=== PATIENT | female | born 1970 | race Caucasian/White ===

== ENCOUNTER → 2020-10-23 16:23 | Outpatient (CLI) | payer OTHER, SELFPAY ==
--- NOTE | ~2020-10-23 | XR_ITS ---
XR sacroiliac joints min 3V DATE: 10/23/2020 17:02 INDICATION: Sacrococcygeal disorder TECHNIQUE: Multiple views COMPARISON: None FINDINGS: An IUD overlies the mid and lower pelvis. The sacroiliac joints are intact, without evidence of erosive change or ankylosis. The pubic symphysi s is intact. IMPRESSION: No significant abnormality of the sacroiliac joints Reviewed, dictated and finalized at [facility]. Reviewed, dictated and finalized at location A.
== END ==
PROVIDERS: PCP Family Medicine; Visit Provider Physician Assistant
DX: M53.3 Sacrococcygeal disorders, not elsewhere classified (principal)
CPT/HCPCS: 72202

== ENCOUNTER 2020-11-08 00:15 | Emergency (ER) | payer OTHER, SELFPAY ==
--- NOTE | ~2020-11-08 | CT_ITS ---
EXAMINATION: CT abdomen pelvis wo con DATE: 11/08/2020 01:45 INDICATION: Left flank pain TECHNIQUE: Computed tomography (CT) of the abdomen and pelvis was performed without intravenous contr ast. The dose-length product (DLP) was 357.72 mGy-cm. Automated exposure control and iterative recons truction technique were employed. COMPARISON: None FINDINGS: The lung bases are clear. The heart size is normal. There is a 2.3 cm area of hypoattenuati on in the right hepatic lobe on image 35. The spleen, pancreas, gallbladder, and adrenal glands are n ormal. The kidneys are unremarkable. There is a 2 mm stone in the distal left ureter which causes mil d hydroureteronephrosis. The right kidney is unremarkable. No pathologically enlarged abdominal or pe lvic lymph nodes are identified. There is no free intraperitoneal gas or evidence of bowel obstructio n. The appendix is normal. An IUD is in expected position. IMPRESSION: 1. 2 mm stone of the distal left ureter causing mild hydroureteronephrosis. 2. Indeterminate 2.3 cm liver lesion. Although likely benign in the absence of known malignancy, pilar mmend comparison with any available prior imaging and if unavailable, further evaluation by MRI or CT without and with contrast. Reviewed, dictated and finalized at location B. IMPRESSION: 1. 2 mm stone of the distal left ureter causing mild hydroureteronephrosis. 2. Indeterminate 2.3 cm liver lesion. Although likely benign in the absence of known malignancy, recommend comparison with any available prior imaging and if unavailable, further evaluation by MRI or CT without and with contrast.
[2020-11-08 00:21] VITALS: BP 154/94; PULSE 55; RESP 14; TEMP 36.6; O2SAT 100
--- NOTE | 2020-11-08 01:01 | ED.ABDPAIN ---
HPI - Abdominal Pain General Chief Complaint: Abdominal Pain Stated Complaint: L abd pain Time Seen by Provider: 11/08/20 00:38 Source: patient Mode of arrival: ambulatory Limitations: no limitations History of Present Illness HPI narrative: Patient is a 50-year-old female complaining of left flank pain radiating to her left lower abdominal area accompanied by nausea and difficulty urinating that started approximately 3 hours prior to arrival. Patient states that her pain was an 8 out of 10 and currently now resolved. Patient states her nausea is also resolved. Patient denies any chest pain, shortness of breath, vomiting, diarrhea, fever or chills. Denies history of kidney stones. Related Data Allergies Allergy/AdvReac Type Severity Reaction Status Date / Time No Known Allergies Allergy Unverified 07/06/20 16:26 Review of Systems Review of Systems: All systems reviewed & are unremarkable except as noted in HPI and below Constitutional: Constitutional: Denies body ache(s), Denies chills, Denies excessive sweating, Denies fatigue, Denies fever(s), Denies headache(s), Denies lethargy, Denies malaise, Denies weakness and Denies weight loss Eyes: Eyes: Denies blurry vision, Denies change in vision and Denies loss of vision ENT: Denies dizziness, Denies ear discharge, Denies headache(s), Denies lip swelling, Denies epistaxis, Denies nasal congestion, Denies neck pain, Denies throat swelling and Denies tongue swelling Cardiovascular: Cardiovascular: Denies chest pain, Denies chest pain at rest, Denies chest pain with activity, Denies diaphoresis, Denies rapid heart rate, Denies edema, Denies irregular heart rhythm, Denies lightheadedness, Denies palpitations, Denies dyspnea and Denies dyspnea on exertion Respiratory: Respiratory: Denies chest congestion, Denies cough, Denies hemoptysis, Denies dyspnea and Denies dyspnea on exertion Gastrointestinal: Gastrointestinal: Denies abdominal pain, Denies melena, Denies hematochezia, Denies diarrhea, Denies nausea, Denies vomiting and Denies hematemesis Musculoskeletal: Musculoskeletal: Denies abnormal gait, Denies deformity, Denies joint swelling, Denies limited range of motion, Denies neck pain and Denies numbness Neurologic: Denies Abnormal speech present, Denies abnormal gait, Denies confusion, Denies dizziness, Denies headache(s), Denies focal weakness, Denies loss of vision, Denies numbness, Denies Other visual disturbances, Denies Sensory deficit (Neuro) and Denies weakness Psychiatric: Psychiatric: Denies confusion, Denies depression, Denies auditory hallucinations, Denies homicidal ideation and Denies suicidal ideation Endocrine: Endocrine: Denies cold intolerance, Denies excessive sweating, Denies fatigue, Denies heat intolerance and Denies palpitations Hematologic/Lymphatic: Hematologic/Lymphatic: Denies easy bleeding and Denies easy bruising Allergic/Immunologic: Allergic/Immunologic: Denies lip swelling, Denies throat swelling and Denies tongue swelling PMFSH Past Medical History Medical History Exposure to influenza History of DVT of lower extremity Pyrexia Family History Family History Mother Patient's mother is , Onset Age: 61 Father Patient's father is in good health Social History Social History Social History: Second hand tobacco smoke exposure: No Alcohol intake: current Substance use: never Substance use type: does not use Gender identity (if verbalized by the patient): Female Exam Const: General: cooperative, healthy appearing, comfortable, no acute distress, well developed, alert and awake; No confusion Orientation/consciousness: oriented to person, oriented to place, oriented to time, patient oriented x3 and No confusion Limitations: no limitations
[2020-11-08 01:35] LABS: Basophils Absolute Auto 0.1 K/mm3 (0.0-0.1); Basophils Percent Auto 0.5 % (0.2-1.2); Eosinophils Absolute Auto 0.1 K/mm3 (0-0.3); Eosinophils Percent Auto 0.8 % (0-4.4); Hematocrit 41.4 % (37.0-47.0); Hemoglobin 13.5 g/dL (12.0-15.0); Immature Granulocyte Absolute 0.04 K/mm3 (0.00-0.031); Immature Granulocyte Percent A 0.3 % (0-0.5); Lymphocytes Absolute Auto 1.61 K/mm3 (0.9-3.2); Lymphocytes Percent Auto 12.1 % (18.3-44.2); Mean Corpuscular HGB Conc 32.6 g/dl (32-36); Mean Corpuscular Hemoglobin 29.2 pg (26-34); Mean Corpuscular Volume 89.6 fl (80-100); Mean Platelet Volume 8.7 fl (7.4-10.4); Monocytes Percent Auto 7.3 % (2.6-8.5); Neutrophils Absolute Auto 10.6 K/mm3 (1.3-6.7); Platelet Count Result 311 k/mm3 (150-375); Red Blood Count 4.62 M/mm3 (4.2-5.4); Red Cell Distribution Width 13.1 % (11.5-14.5); White Blood Count 13.4 K/mm3 (4.5-10.0)
[2020-11-08 01:44] LABS: Add Urine Microscopic? YES; Appearance Urine Cloudy (Clear); Bilirubin Urine Negative (Negative); Blood Urine 1+ (Negative); Color Urine Yellow (Yellow); Glucose Urine UA Negative (Negative); Ketones Urine Negative (Negative); Leukocyte Esterase Ur Trace LEU/UL (Negative); Mucus Urine Few /lpf; Nitrate Urine Negative (Negative); Protein Urine Negative (Negative); Squamous Epithelial Cell Urine Few /hpf (Few); Uric Acid Crystals Urine Present /hpf; Urobilinogen Urine Negative mg/dL (<2.0)
[2020-11-08 01:48] LABS: Anion Gap 10 mmol/L (8-16); Blood Urea Nitrogen 17 mg/dL (7-17); Calcium 9.7 mg/dL (8.4-10.2); Carbon Dioxide 25 mmol/L (22-30); Chloride 106 mmol/L (98-107); Estimated CRCL calculation 51 ml/min; Estimated Glomerular Filt Rate 53; Glucose 96 mg/dL (65-105); Potassium 3.7 mmol/L (3.4-5.0); Sodium 141 mmol/L (137-145)
[2020-11-08 03:07] VITALS: BP 144/84; PULSE 60; RESP 18; O2SAT 99
--- NOTE | 2020-11-08 08:43 | PC.NURSE ---
ATTEMPTED TO CONTACT PT @[phone],WENT TO VOICE MAIL LEFT MESSAGE TO RETURN CALL.
--- NOTE | 2020-11-08 10:44 | PC.NURSE ---
1032 PT RETURNED CALL, THIS COUNTY PROGRAM TECHNICIAN INFORMED HER OF THE OVER-READ BY OUR RADIOLOGIST. WHEN ASKED IF SHE WAS HAVING PAIN PT STATED SHE WAS NOT IN PAIN. INFORMED PT TO STAY WELL HYDRATED AND CONTACT US IF SHE EXPERIENCED ANY FURTHER PROBLEMS. PT THANKED US AND STATED SHE WOULD DO SO.
== END 2020-11-08 03:10 | disposition home or self-care (01) ==
PROVIDERS: Emergency Provider Emergency Medicine; PCP Family Medicine
DX: N39.0 Urinary tract infection, site not specified (principal); Z86.718 Personal history of other venous thrombosis and embolism
CPT/HCPCS: 36415; 74176; 80048; 81001; 81025; 85025; 99284

== ENCOUNTER → 2021-01-19 08:44 | Outpatient (CLI) | payer OTHER, SELFPAY ==
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
== END ==
PROVIDERS: PCP Family Medicine; Visit Provider Family Medicine
DX: S69.90XA Unspecified injury of unspecified wrist, hand and finger(s), initial encounter (principal); X58.XXXA Exposure to other specified factors, initial encounter
CPT/HCPCS: 73120

== ENCOUNTER → 2021-10-19 16:58 | Outpatient (CLI) | payer OTHER, SELFPAY ==
--- NOTE | ~2021-10-19 | XR_ITS ---
XR lumbar spine 2-3V DATE: 10/19/2021 17:48 INDICATION: Hip pain TECHNIQUE: AP, lateral, coned lateral lumbosacral views COMPARISON: None FINDINGS: There is mild degenerative spurring of the lower thoracic and lumbar spine. There is thoracic dextro scoliosis with minimal compensatory levoscoliosis of the lumbar spine. No fracture or bone destruction of the lumbar spine. The lumbar and included lower thoracic pedicles are intact. There is degenerative change at the apophyseal joints at L5-S1 with associated minimal grade 1 jason listhesis at L5-S1. The sacroiliac joints are intact. IUD overlying central pelvic area. IMPRESSION: Minimal compensatory levoscoliosis of the lumbar spine Thoracic dextroscoliosis Mild degenerative spurring of the thoracic and lumbar spine Minimal grade 1 anterolisthesis at L5-S1 due to degenerative change at the apophyseal joints Reviewed, dictated and finalized at location A. IMPRESSION: Minimal compensatory levoscoliosis of the lumbar spine Thoracic dextroscoliosis Mild degenerative spurring of the thoracic and lumbar spine Minimal grade 1 anterolisthesis at L5-S1 due to degenerative change at the apop hyseal joints
--- NOTE | ~2021-10-19 | XR_ITS ---
XR hip RT 2V w AP pelvis DATE: 10/19/2021 17:48 INDICATION: Right hip pain TECHNIQUE: AP pelvis. AP and lateral views of right hip COMPARISON: None FINDINGS: No pelvic fracture or bone destruction. The pubic symphysis and sacroiliac joints are intac t. An IUD overlies the central pelvic area. Hip joint spaces appear symmetric and relatively preserved. No fracture or dislocation, avascular necrosis or bone destruction of the right hip. IMPRESSION: No significant abnormality of the right hip IUD Reviewed, dictated and finalized at location A.
--- NOTE | ~2021-10-19 | XR_ITS ---
XR knee RT 2V DATE: 10/19/2021 17:48 INDICATION: Right knee pain TECHNIQUE: Standing AP and lateral views COMPARISON: None FINDINGS: There is minimal periarticular spurring at the patellofemoral and medial compartments and s light loss of height of medial compartment joint space, consistent with mild osteoarthritis. No fracture or dislocation or joint effusion. No periosteal reaction or bone destruction. No radiopaq ue intra-articular loose body or, calcinosis. IMPRESSION: Mild patellofemoral and medial compartment osteoarthritis Reviewed, dictated and finalized at location A.
== END ==
PROVIDERS: PCP Family Medicine; Visit Provider Family Medicine
DX: M25.559 Pain in unspecified hip (principal); M25.561 Pain in right knee; M41.84 Other forms of scoliosis, thoracic region; M77.8 Other enthesopathies, not elsewhere classified; M47.816 Spondylosis without myelopathy or radiculopathy, lumbar region; M17.11 Unilateral primary osteoarthritis, right knee; Z97.5 Presence of (intrauterine) contraceptive device
CPT/HCPCS: 72100; 73502; 73560

== ENCOUNTER → 2021-12-24 16:30 | Outpatient (CLI) | payer OTHER, SELFPAY ==
--- NOTE | ~2021-12-24 | MM_ITS ---
EXAMINATION: MM screening lynda BI w berta HISTORY: Screening mammogram TECHNIQUE: Craniocaudal and mediolateral oblique 3-D tomosynthesis images were obtained and synthetic 2-D images were generated. CAD analysis was submitted and interpreted. COMPARISON: 12/03/2016 diagnostic right mammogram and limited right breast ultrasound 05/02/2016 bilateral diagnostic mammography and bilateral Limited breast ultrasound examination 03/07/2016 bilateral screening mammogram BREAST PARENCHYMAL COMPOSITION: There are scattered areas of fibroglandular density. FINDINGS: Stable mild fibroglandular asymmetry since 03/07/2016. There is no evidence of suspicious m ass, calcification, or architectural distortion to suggest malignancy in either breast. There has bee n no suspicious interval change. IMPRESSION: 1. No mammographic evidence of malignancy. 2. Recommend routine screening mammography in one year. BI-RADS Category 2: Benign finding(s). Reviewed, dictated and finalized at location A.
== END ==
PROVIDERS: PCP Family Medicine; Visit Provider Family Medicine
DX: Z12.31 Encounter for screening mammogram for malignant neoplasm of breast (principal)
CPT/HCPCS: 77063; 77067

== ENCOUNTER 2022-01-29 18:14 | Emergency (ER) | payer OTHER, SELFPAY ==
[2022-01-29 18:25] VITALS: BP 121/74; PULSE 77; RESP 18; TEMP 37.2; O2SAT 99
--- NOTE | 2022-01-29 18:30 | ED.URI ---
HPI - URI/Sore Throat General Chief Complaint: Upper Respiratory Infection Stated Complaint: Sore Throat Time Seen by Provider: 01/29/22 18:30 History of Present Illness HPI Narrative: Arnol Jaffe is a 51 yo female with no PMH who comes to express care with sore throat, fever 100.6 last night. States that she needs a strep and covid test for work although she think that she has strep Related Data Allergies Allergy/AdvReac Type Severity Reaction Status Date / Time No Known Allergies Allergy Verified 01/29/22 18:34 Review of Systems Review of Systems: CONSTITUTIONAL: Had fever, chills, sweats. EYES: Denies visual changes, redness, discharge. ENT: Denies rhinorrhea, congestion, has sore throat, otalgia. CARDIOVASCULAR: Denies chest pain, palpitations, edema. RESPIRATORY: Denies dyspnea, wheezing, cough GASTROINTESTINAL: Denies abdominal pain, nausea, vomiting, diarrhea. GENITOURINARY: Denies dysuria, hematuria, abnormal discharge SKIN: Denies rash or itching. NEUROLOGIC: Denies numbness, or focal weakness. PSYCHIATRIC: Denies anxiety or depression. PMFSH Past Medical History Medical History Exposure to influenza History of DVT of lower extremity Pyrexia Family History Family History Mother Patient's mother is , Onset Age: 61 Father Patient's father is in good health Social History Social History Social History: Smoking status: Never smoker Second hand tobacco smoke exposure: No Alcohol intake: current Alcohol use details: occassionally Substance use: never Substance use type: does not use Gender identity (if verbalized by the patient): Female Sexual Orientation (if Verbalized by the Patient): Straight or Heterosexual Comments At time of signature, I agree with nursing past medical, surgical, social and family history. There is no relevant family history pertinent to the presenting complaint. Exam Narrative: GENERAL: This is a well-nourished, well-developed patient, in mild distress. HEAD: normocephalic, atraumatic. EYES: Sclera clear/white. Vision is grossly intact. EARS: External ears normal, auditory canals erythema and without drainage, TMs normal without perforation. Hearing grossly intact. NOSE: External nose normal without nasal discharge, nares without redness, no rhinorrhea. THROAT: Mucous membranes moist, posterior pharynx erythema NECK: Neck supple, non-tender CARDIOVASCULAR: Regular rate and rhythm without murmurs, gallops, or rubs. RESPIRATORY: Clear to auscultation. Breath sounds equal bilaterally. No wheezes, rales, or rhonchi. GASTROINTESTINAL: Abdomen soft, non-tender, SKIN: warm, intact with no suspicious lesions or rash, good texture and turgor. NEURO: awake, alert, and oriented to person, place and time. There were no obvious focal neurologic abnormalities. Steady gait EXTREMITIES: Normal range of motion. BACK: Nontender without deformity Course Course Emergency Course: Patient here with a temperature of 100.6 and sore throat since yesterday; to go back to work she needs to be tested for COVID as well as strep COVID- Negative Strep test-negative yet Started on prednisone and Plavix and eardrops prescribed some meclizine and Tomasa maneuver Level of Care: Express Care Visit Vital Signs Vital signs: Vital Signs Temperature 98.9 F 01/29/22 18:25 Pulse Rate 77 01/29/22 18:25 Respiratory Rate 18 01/29/22 18:25 Blood Pressure 121/74 01/29/22 18:25 Pulse Oximetry 99 01/29/22 18:25 Oxygen Delivery Room Air 01/29/22 18:25 Temperature 98.9 F 01/29/22 18:25 Pulse Rate 77 01/29/22 18:25 Respiratory Rate 18 01/29/22 18:25 Blood Pressure 121/74 01/29/22 18:25 Pulse Oximetry 99 01/29/22 18:25 Oxygen Delivery Room Air 01/29/22 18:25
== END 2022-01-29 19:20 | disposition home or self-care (01) ==
PROVIDERS: Emergency Provider Nurse Practitioner; PCP Family Medicine
DX: J02.9 Acute pharyngitis, unspecified (principal); Z20.822 Contact with and (suspected) exposure to COVID-19
CPT/HCPCS: 87081; 87426; 87880; 99213; C9803; G0463

== ENCOUNTER 2022-06-26 16:23 | Outpatient (CLI) | payer OTHER, SELFPAY ==
--- NOTE | ~2022-06-26 | US_ITS ---
EXAMINATION: US venous doppler [facility] DATE: 06/26/2022 17:07 INDICATION: M79.606 - Pain in leg, unspecified . TECHNIQUE: Grayscale images without and with compression and Doppler images of the left lower extremi ty veins were obtained. COMPARISON: None FINDINGS: The left common femoral vein, profunda femoral vein, femoral vein, popliteal vein, peroneal vein, pos terior tibial veins, and greater saphenous vein are patent. Interrogation of the area of pain in left anterior thigh revealed no sonographic abnormality. IMPRESSION: 1. Patent left lower extremity veins. No evidence of deep venous thrombosis. Reviewed, dictated and finalized at location K. PRINT CLERK
== END 2022-06-26 16:24 | disposition home or self-care (01) ==
PROVIDERS: PCP Family Medicine; Visit Provider Nurse Practitioner Gerontology
DX: M79.606 Pain in leg, unspecified (principal); Z86.718 Personal history of other venous thrombosis and embolism
CPT/HCPCS: 93971

== ENCOUNTER 2022-09-08 10:44 | Emergency (ER) | payer OTHER, SELFPAY ==
[2022-09-08 10:57] VITALS: BP 118/76; PULSE 56; RESP 18; TEMP 36.5; O2SAT 99
--- NOTE | 2022-09-08 11:27 | ED.URI ---
HPI - URI/Sore Throat General Chief Complaint: Upper Respiratory Infection Stated Complaint: . Time Seen by Provider: 09/08/22 10:48 Source: patient Mode of arrival: ambulatory History of Present Illness HPI Narrative: 52-year-old female presents to [facility] with complaints of sore throat, body aches and intermittent stiff neck for the past 4-5 days. Patient reports history of strep and tonsillitis in the past. Patient has been taking [id number] ibuprofen with minimal relief. Patient has runny nose, nasal congestion, nausea, vomiting or diarrhea. Patient reports history of postnasal drainage and seasonal allergies but reports that she does not take a daily allergy medication MD elicited complaint: sore throat Onset (ago): day(s) (4-5) Consistency: constant Severity: mild Able to tolerate fluids by mouth: Yes Exacerbating factors: swallowing Relieving factors: nothing Treatments prior to arrival: ibuprofen Related Data Allergies Allergy/AdvReac Type Severity Reaction Status Date / Time No Known Allergies Allergy Verified 09/08/22 11:31 Review of Systems Constitutional: Constitutional: Denies chills, Denies fatigue, Denies fever(s) and Denies weakness ENT: Denies dizziness, Denies epistaxis, Denies nasal congestion and Reports sore throat Cardiovascular: Cardiovascular: Denies chest pain Respiratory: Respiratory: Denies cough, Denies dyspnea and Denies wheezing Gastrointestinal: Gastrointestinal: Denies diarrhea, Denies nausea and Denies vomiting Musculoskeletal: Comments: Intermittent neck pains Integumentary/Breasts: Skin/Breast: Denies erythema and Denies rash Neurologic: Denies dizziness, Denies syncope and Denies headache(s) [facility] Past Medical History Medical History Exposure to influenza History of DVT of lower extremity Pyrexia Family History Family History Mother Patient's mother is , Onset Age: 61 Father Patient's father is in good health Social History Social History Social History: Smoking status: Never smoker Second hand tobacco smoke exposure: No Alcohol intake: current Alcohol use details: occassionally Substance use: never Substance use type: does not use Living arrangements: with family Occupation/Education: occupation Gender identity (if verbalized by the patient): Female Sexual Orientation (if Verbalized by the Patient): Straight or Heterosexual Comments At time of signature, I agree with nursing past medical, surgical, social and family history. There is no relevant family history pertinent to the presenting complaint. Exam Const: General: healthy appearing and no acute distress Nutritional Appearance: well nourished Orientation/consciousness: patient oriented x3 Limitations: no limitations HENMT: Head: normal to inspection Ears: external ears normal, TM's normal bilaterally and EAC's normal Face/Nose/Sinus: Normal external nose present Mouth: Yes lip normal and Yes moist mucous membranes Teeth and gingiva: dentition normal Other: 2+ swelling and moderate erythema noted to right tonsil, no peritonsillar abscess or exudate noted. Eyes: Conjunctivae: conjunctivae normal Neck: Neck: normal visual inspection, no lymphadenopathy and no meningeal signs Other: Full range of motion noted to neck. No nuchal rigidity noted Resp: Effort & Inspection: normal respiratory effort Auscultation: clear to auscultation bilaterally, no crackles, no rales and no rhonchi Cardio: Rate: regular rate Rhythm: regular rhythm Heart sounds: no murmurs Skin: General skin exam: normal color Rashes: no rashes Neuro: General: patient oriented x3 Speech: normal speech Psych: Affect: normal affect Attitude: cooperative Course Course Level of Care: Expr
== END 2022-09-08 11:39 | disposition home or self-care (01) ==
PROVIDERS: Emergency Provider Nurse Practitioner Family; PCP Family Medicine
DX: J02.0 Streptococcal pharyngitis (principal); Z86.718 Personal history of other venous thrombosis and embolism
CPT/HCPCS: 87081; 87880; 99213; G0463

== ENCOUNTER 2023-12-05 08:46 | Outpatient (CLI) | payer OTHER, SELFPAY ==
--- NOTE | ~2023-12-05 | XR_ITS ---
XR hip RT 2V w AP pelvis Ordering provider: Kinga Valles PA-C History: . no injury lbp with rt hip pain for 5 days . Comparison: October 19, 2021 FINDINGS: BONES: No acute fracture or dislocation. HIP JOINT SPACES: Normal. SACROILIAC JOINT SPACES/LUMBAR SPINE: The sacroiliac joint spaces are normal. Mild degenerative parnell es of the visualized lower lumbar spine. PUBIC SYMPHYSIS: Normal. SOFT TISSUES: Normal. IUD is noted. IMPRESSION: No acute osseous abnormality pelvis and right hip. Reviewed, dictated and finalized at location A.
--- NOTE | ~2023-12-05 | XR_ITS ---
3 VIEWS LUMBAR SPINE Ordering provider: Kinga Valles PA-C History: . no injury lbp with rt hip pain for 5 days . Comparison: October 19, 2021 FINDINGS: VERTEBRAL BODIES: No visible fracture or subluxation. Degenerative changes of the spine. DISK SPACES: Normal. Facet joint disease at the level of L4-L5 and L5-S1. SOFT TISSUES: Normal. IMPRESSION: No acute osseous abnormality lumbar spine. Reviewed, dictated and finalized at location A.
== END 2023-12-05 08:47 ==
LOC: MICIMG 08:48
PROVIDERS: PCP Family Medicine; Visit Provider Student in an Organized Health Care Education/Training Program
DX: M25.551 Pain in right hip (principal); M54.50 Low back pain, unspecified
CPT/HCPCS: 72100; 73502

== ENCOUNTER 2024-12-22 19:01 | Emergency (ER) | payer OTHER, SELFPAY ==
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
--- OUTSIDE RECORDS SUMMARY | 2024-12-22 19:03 | XMS_ITS | Clinical Summary ---
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 Gender Identity Not on file Sexual Orientation Not on file Plan of Treatment Health Maintenance Due Date Last Done Comments Cervical Cancer Screening 1972 Colon Cancer Screening-Colonoscopy 1972 Depression Screening 1972 Hepatitis C Screening 1972 DTaP/Tdap/Td Vaccine (1 - Tdap) 1983 Hepatitis B Screening 1990 Regular Well Visit/Exam 18-64 1990 Zoster Vaccine (1 of 2) 2022 Influenza Vaccine (#1) 2025 Breast Cancer Screening-Mammogram 01/20/2025 024 Pneumococcal vaccine <65 Aged Out No longer eligible based on patient's age to complete this topic Procedures Procedure Name Priority Date/Time Associated Diagnosis Comments SCREENING MAMMOGRAM BILATERAL W LUCIEN Schedule Routine, Read Routine (OP Routine) 01/21/2024 11:01 AM CDT Screening mammogram, encounter for from Last 3 Months or Most Recently Relevant to Health Maintenance Results * Screening Mammogram Bilateral W Lucien (01/21/2024 11:01 AM CDT) Anatomical Region Laterality Modality Breast Bilateral Mammography Narrative 01/22/2024 12:56 PM CDT Examination: Screening Mammogram Bilateral W Lucien: 01/21/24 Clinical: Screening mammogram, encounter for. Prior Study Comparisons: Comparison was made to the prior available relevant studies at the time of interpretation. Findings: Screening Mammogram Bilateral W Lucien Bilateral No significant masses, malignant type calcifications, skin thickening, nipple retraction, or significant lymphadenopathy is noted in either breast. Computer Aided Detection was utilized for the interpretation of this study. There are scattered areas of fibroglandular density. The patient will be notified of results by letter. Impression: BI-RADS ATLAS category (overall): 2 - Benign There is no mammographic evidence of malignancy. Routine Screening Mammogram in 1 Yr is recommended for bilateral Overall Assessment: 2 - Benign us Self Screening Mammogram IMG MAMMO PROCEDURES Fi nal Result from Last 3 Months or Most Recently Relevant to Health Maintenance Insurance [employer] [facility] Care Teams [employer] Relationship Specialty Start Date End Date Tanya Reynoso MD [address] [facility] [address] [place] [address] PCP - General Family Medicine 01/09/24
--- OUTSIDE RECORDS SUMMARY | 2024-12-22 19:03 | XMS_ITS | Continuity of Care Document ---
Author Organization [facility] Address [address] [place] [address] Phone Care Team Providers Care Knit Goods Washer Name Role Phone Salvador Kirk MD Unavailable Unavailable Allergies, Adverse Reactions, Alerts Substance Reaction Status Criticality No Known Allergies Active No Inform ation Medications Medication Instructions Dosage Effective Dates (start - stop) Status Comments phentermine 37.5 mg capsule take 1 capsule by oral route every day before breakfast 37.5 MG - Active Procedures Procedure Date OFFICE/OUTPATIENT VISIT, EST OFFICE/OUTPATIENT VISIT, EST PREV VISIT, NEW, AGE 40-64 OFFICE/OUTPATIENT VISIT, NEW Advance Directives Directive Yes / No Effective Date File Name No Information Encounters Encounter Description Practice Location Reason(s) For Visit Diagnoses Date Provider Providers Copied on Encounter OFFICE/OUTPA TIENT VISIT, [facility], [address] [place], [place], [id number], tel:[phone] [facility] DVT (chief complaint) weight (chief complaint) headache (chief complaint) constipati on (chief complaint) HeadacheDVT of left legConstipationAbno rmal weight gain 8-201 6 Reagan Franco. [address] [place], [place], [id number] , [place]. tel:[phone] Referring Provider: Salvador Kirk [address] [place] [address], [id number]. tel:[phone] OFFICE/OUTPA TIENT VISIT, [facility], [address] [place], [id number], tel:[phone] [facility] Medicine HLP (chief complaint) DVT (chief complaint) headache (chief complaint) DVT of left legHeadacheHyperlip idemia 6 Reagan Franco. [address], [address], [place], [place], [id number] , [place]. tel:[phone] Referring Provider: Stephanie Anderson [address], [place], [place], [id number]. tel:[phone] PREV VISIT, NEW, AGE 40-64 [facility], [address], [place], [place], [id number], [place] tel:[phone] [facility] Physical (chief complaint) Encounter for general adult medical exam w abnormal findingsDVT of left legConstipation, unspecifiedHeadache 6 Reagan Franco. [address], [address], [place], [place], [id number] , [place]. tel:[phone] Referring Provider: Stephanie Anderson [address], [place], [place], [id number]. tel:[phone] Family History Family Member Type Diagnosis Age At Onset Mother Problem (finding) lung CA Mother Problem (finding) Father Problem (finding) COPD Father Problem (finding) Payers Payer name Insurance type Covered alliance party ID Authoriza tion(s) No Information Social History Type Description Quantity Date Captured Comments Alcohol Use Details Caffeine Use Details Unknown Tobacco Use Status Never smoked tobacco 2015 Smoking Status Never smoker Sex Female Vital Signs Date / Time: Height Weight BMI Pulse Rate Blood Pressure Temperature Respiratory Rate Body Surface Area Head Circumference BMI percentile Pulse Ox Inhaled Ox 5:07 PM 167.64 cm 157.00 lbs 25.3 4 kg/m eter (2) 64 /min 124/70 mm[Hg] 98.7 F 18 /min Chief Complaint And Reason For Visit From encounter dated '04/18/2016 15:30'. DVT (chief complaint). Description: Pt had left leg DVT 3 months ago. Pt was on xarelto but she wastold to stop recently. Pt finishe total of 3 months of xarelto. Pt is off OCP. Pt has not discussedwith her CONTAINER CRANE OPERATOR about contraception yet. Pt is not on any control weight (chief complaint). Description: Pt has not been able to lose weight. Pt has been diet and exercising but not able to lose any weight. Pt wants to lose 20 pounds to around 130s. headache (chief complaint). Description: Pertinent negatives include vomiting. Additional information: Pt has not had any headache for several months. Pt is doing ok. Pt denies any head injury. constipation (chief complaint). Description: Pertinent negatives include abdominal pain and vomiting. Additional information: Pt has intermittent constipation. Pt has one BM every 3-4 days. Pt deniesany blood in stool. Pt denies any abd pain. Plan Of Treatment Date Type Action Status Referral Ordered: Hematology (related to DVT of left leg) ordered Referral Ordered: COLONOSCOPY AND BIOPSY ordered Referral Ordered: Referrals: Hematology. Evaluate and treat ordered History Of Present Illness Encounter Date Complaint History Of Prese nt Illness weight Pt has not been able to lose weight. Pt has been diet and exercising but not able to lose any weight. Pt wants to lose 20 pounds to around 130s. constipation Pertinent negati ves include abdominal pain and vomiting. Additional information: Pt has intermittent constipation. Pt has one BM every 3-4 days. Pt denies any blood in stool. Pt denies any abd pain. headache Pertinent negati ves include vomiting. Additional information: Pt has not had any headache for several months. Pt is doing ok. Pt denies any head injury. DVT Pt had left leg DVT 3 months ago. Pt was on xarelto but she was told to stop recently. Pt finishe total of 3 months of xarelto. Pt is off OCP. Pt has not discussed with her CONTAINER CRANE OPERATOR about contraception yet. Pt is not on any control headache Additional infor mation: Pt has chronic migraine headache Pt has not had any headache since off OCP Pt denies any head injury. Pt did have photophobia and nauea with headache. DVT Pt has left leg DVT. Pt denies any leg pain or any swelling. Pt seen associate pastor and was told to continue xarelto for now. Pt is off OCP now. Pt denies any sob or any chest pain HLP Pt has HLP. Pt i s not on any diet Physical Pt needs annual physical. Pt recently went to ER due to sudden onset of left calf pain 6 days ago. pt denies any recent travel or bedrest. Pt was found to have left calf DVT Pt denies any chest pain or SOB. Pt denies any activity change. Pt was just started on new OCP by chemical operations specialist 4 months ago. Pt otherwise is healthy. Pt denies any other complaints. Pt is on xarelto now. Pt c/o mild left calf achy but getting better. Pt does not have PE. Pt has chronic constipation Pt notices bright red blood per rectum intermittnetly for several months. Pt thinks that she has hemorrhoid. . Pt has menstraul related migraine for years. Pt takes excedrin which works ok. Pt has headache 3-4 per months. . Pt has photophobia , nausea, Pt denies any head injury Instructions Date Instruction Additional Infor mation Prescribed Activity and Exercise Education Related to Dietary Surveillance and Counseling Prescribed Diet Educ ation/Lifestyle Education Regarding Diet Related to Dietary Surveillance and Counseling Assessments Type Assessment Date assessment Headache assessment DVT of left leg assessment Constipation assessment Abnormal weight gain Mental Status Date Cognitive Assessment Orientation - [place] ed to time, place, person, situation.
--- OUTSIDE RECORDS SUMMARY | 2024-12-22 19:03 | XMS_ITS | Clinical Summary ---
Author Organization [facility] Address [address], [facility] [address] [place] [address] Phone Care Team Providers Care Switchbox Assembler Name Role Phone Salvador Kirk Primary Care Provider [phone] Allergies No known active allergies Medications No known medications Active Problems Problem Noted Date Diagnosed Date DVT (deep venous thrombosis) 01/11/2016 Family History Medical History Relation Name Comments Chronic Obstructive Pulmonary Disease Father Cancer Mother Lung Relation Name Status Comments Father Alive Mother Social History Tobacco Use Types Packs/Day Years Used Date Smoking Tobacco: Never Alcohol Use Standard Drinks/Week Comments Yes 0 (1 standard drink = 0.6 oz pur e alcohol) socially Comments Unknown Sex and Gender Information Value Date Recorded Sex Assigned at Not on file Legal Sex 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 Gender Identity Not on file Sexual Orientation Not on file Last Filed Vital Signs Vital Sign Reading Time Taken Comments Blood Pressure 112/78 08/12/2016 3:04 PM CDT Pulse 59 08/12/2016 3:04 PM CDT Temperature 36.8 C (98.3 F) 08/12/2016 3:04 PM CDT Respiratory Rate 12 08/12/2016 3:04 PM CDT Oxygen Saturation 98% 08/12/2016 3:04 PM CDT Inhaled Oxygen Concentration - - Weight 72.6 kg (160 lb) 08/12/2016 3:04 PM CDT Height 154.9 cm (5' 1) 08/12/2016 3:04 PM CDT Body Mass Index 30.23 08/12/2016 3:04 PM CDT Plan of Treatment Health Maintenance Due Date Last Done Comments Hepatitis C Virus (HCV) Screening 1972 TdaP Immunization 1972 Hepatitis B Immunization (1 of 3 - 19+ 3-dose series) 1991 Pap Smear 1993 Cervical Cancer Screening (CCS) 2002 HPV/Cotest 2002 Cologuard 2017 Colonoscopy 2017 Colorectal Cancer Screening 2017 Immunochemical Fecal Occult Blood 2017 Pneumococcal Immunization (5 0+ years) (1 of 1 - PCV) 2022 Zoster Immunization (1 of 2) 2022 SARS-COV-2 Immunization (1 - 2023- season) 2024 Influenza Immunization (#1) 2025 Respiratory Syncytial Virus (RSV) Immunization (Adult) (1 - 1-dose 75+ series) 2047 Human Papillomavirus (HPV) Immunization Aged Out No longer eligible b ased on patient's age to complete this topic Meningococcal Immunization (ACWY) Aged Out No longer eligible based on patient's age to complete this topic Rotavirus Immunization Aged Out No lo nger eligible based on patient's age to complete this topic Insurance [facility] Care Teams Switchbox Assembler Relationship Specialty Start Date End Date Salvador Kirk [address] [place] [address] PCP - General Family Medicine 01/02/16
--- OUTSIDE RECORDS SUMMARY | 2024-12-22 19:06 | XMS_ITS | Clinical Summary ---
Author Organization [facility] Address [address] [place] [address] Care Team Providers Care Multi Operation Forming Machine Setter Name Role Phone Vadim Bhatt MD Primary Care Provider [phone] Social History Tobacco Use Types Packs/Day Years Used Date Smoking Tobacco: Never Assessed Comments Unknown Sex and Gender Information Value Date Recorded Sex Assigned at Not on file Legal Sex Female 7:05 PM CDT Gender Identity Not on file Sexual Orientation Not on file Plan of Treatment Health Maintenance Due Date Last Done Comments Cervical Cancer Screening Pa p Smear (Age 30 to 64) Every 3 Years 1972 Colorectal Cancer Screening Colonoscopy (10 Years) 1972 Annual Physical 1975 Hepatitis C 1990 DTaP, Tdap and Td Vaccines ( 1 - Tdap) 1991 Hepatitis B Vaccines (1 of 3 - 19+ 3-dose series) 1991 Cervical Cancer Screening Pa p with HPV Testing (Age 30 to 64) Every 5 Years 2002 Cervical Cancer Screening with HPV 2002 Mammogram Screening 2012 Pneumococcal Vaccine: 50+ Ye ars (1 of 1 - PCV) 2022 Zoster Vaccines (1 of 2) 2022 COVID-19 Vaccine (1 - 2023-2 5 season) 2024 Meningococcal B Vaccine Aged Out No l onger eligible based on patient's age to complete this topic Meningococcal Vaccine Aged Out No rebekah phyllis eligible based on patient's age to complete this topic RSV Immunizations Under 20 Months Aged Out No longer eligible based on patient's age to complete this topic Care Teams Multi Operation Forming Machine Setter Relationship Specialty Start Date End Date Vadim Bhatt MD PCP - General 03/28/16
--- OUTSIDE RECORDS SUMMARY | 2024-12-22 19:06 | XMS_ITS | Encounter Summary ---
Author Organization [facility] Address [address] [place] [address] Care Team Providers Care Veneer Jointer Operator Name Role Phone Vadim Bhatt MD Primary Care Provider [phone] Encounter Details Date Type Department Care Team (Late st Contact Info) Description 05/15/2017 Abstract [facility] CONVERSION [address] [place] [address] , Generic Conversion, Social History Tobacco Use Types Packs/Day Years Used Date Smoking Tobacco: Never Assessed Comments Unknown Sex and Gender Information Value Date Recorded Sex Assigned at Not on file Legal Sex Female 7:05 PM CDT Gender Identity Not on file Sexual Orientation Not on file documented as of this encounter Plan of Treatment Not on file documented as of this encounter Visit Diagnoses Not on filedocumented in this encounter Care Teams Veneer Jointer Operator Relationship Specialty Start Date End Date Vadim Bhatt MD PCP - General 03/28/16 documented as of this encounter
--- OUTSIDE RECORDS SUMMARY | 2024-12-22 19:06 | XMS_ITS | Continuity of Care Document ---
Author Organization [facility] Address [address] [place] [address] Phone Care Team Providers Care Welfare Service Aide Name Role Phone Salvador Kirk MD Unavailable [...] Providers Copied on Encounter OFFICE/OUTPA TIENT VISIT, [facility], [address] [place], [place], [id number], tel:[phone] [facility] [place] DVT (chief complaint) weight (chief complaint) headache (chief complaint) constipati on (chief complaint) HeadacheDVT of left legConstipationAbno rmal weight gain 8-201 6 Reagan Franco. [address] [place], [place], [id number] , [place]. tel:[phone] Referring Provider: Salvador Kirk [address] [place] [address], [id number]. tel:[phone] OFFICE/OUTPA TIENT VISIT, [facility], [address] [place], [id number], tel:[phone] [facility] Medicine HLP (chief complaint) DVT (chief complaint) headache (chief complaint) DVT of left legHeadacheHyperlip idemia 6 Reagan Franco. [address], [place], [place], [id number] , [place]. tel:[phone] Referring Provider: Stephanie Anderson [address], [place], [place], [id number]. tel:[phone] PREV VISIT, NEW, AGE 40-64 [facility], [place], [address] [place], [place], [id number], [place] tel:[phone] [facility], [place] Physical (chief complaint) Encounter for general adult medical exam w abnormal findingsDVT of left legConstipation, unspecifiedHeadache 6 Reagan Franco. [address], [place], [place], [id number] , [place]. tel:[phone] Referring Provider: Stephanie Anderson [address], [place], [place], [id number]. tel:[phone] Family History Family Member Type Diagnosis Age At Onset Mother Problem (finding) lung CA Mother Problem (finding) Father Problem (finding) COPD Father Problem (finding) Payers Payer name Insurance type Covered libertarian ID Authoriza tion(s) No Information Social History [...] off OCP. Pt has not discussedwith her TANK HOUSE OPERATOR HELPER about contraception yet. Pt is not on [...] Date Complaint History Of Prese nt Illness DVT Pt had left leg DVT 3 months ago. Pt was on xarelto but she was told to stop recently. Pt finishe total of 3 months of xarelto. Pt is off OCP. Pt has not discussed with her TANK HOUSE OPERATOR HELPER about contraception yet. Pt is not on any control headache Pertinent negati ves include vomiting. Additional information: Pt has not had any headache for several months. Pt is doing ok. Pt denies any head injury. constipation Pertinent negati ves include abdominal pain and vomiting. Additional information: Pt has intermittent constipation. Pt has one BM every 3-4 days. Pt denies any blood in stool. Pt denies any abd pain. weight Pt has not been able to lose weight. Pt has been diet and exercising but not able to lose any weight. Pt wants to lose 20 pounds to around 130s. HLP Pt has HLP. Pt i s not on any diet DVT Pt has left leg DVT. Pt denies any leg pain or any swelling. Pt seen director of the biophysics facility and was told to continue xarelto for now. Pt is off OCP now. Pt denies any sob or any chest pain headache Additional infor mation: Pt has chronic migraine headache Pt has not had any headache since off OCP Pt denies any head injury. Pt did have photophobia and nauea with headache. Physical Pt needs annual physical. Pt recently went to ER due to sudden onset of left calf pain 6 days ago. pt denies any recent travel or bedrest. Pt was found to have left calf DVT Pt denies any chest pain or SOB. Pt denies any activity change. Pt was just started on new OCP by business department chair 4 months ago. Pt otherwise is healthy. [...] Mental Status Date Cognitive Assessment Orientation - [place] ed to time, place, person, situation.
[2024-12-22 19:13] VITALS: BP 127/90; PULSE 64; RESP 18; TEMP 36.4; O2SAT 99
[2024-12-22] MEDS: TETANUS,DIPHTHERIA,AC PERTUSSIS ADULT (0.5 ML) BOOSTRIX IM (19:45)
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
== END 2024-12-22 20:23 | disposition home or self-care (01) ==
DX: S50.12XA Contusion of left forearm, initial encounter (principal); S50.812A Abrasion of left forearm, initial encounter; V23.49XA Other motorcycle driver injured in collision with car, pick-up truck or van in traffic accident, initial encounter; Z23 Encounter for immunization; Z86.718 Personal history of other venous thrombosis and embolism
CPT/HCPCS: 73110; 90471; 90715; 99213; G0463